=== PATIENT | male | born 1930 | race Caucasian/White ===

== ENCOUNTER 2018-02-26 10:01 | Outpatient (CLI) | payer MEDICARE, OTHER ==
[2012-09-09 19:44] VITALS: BP 139/48
== END 2018-02-26 10:02 ==
LOC: LABRHC 10:01
PROVIDERS: ATTEND Family Medicine
DX: D23.9 Other benign neoplasm of skin, unspecified (principal)

== ENCOUNTER 2018-08-21 09:27 | Outpatient (CLI) | payer MEDICARE, OTHER ==
[2012-09-09 19:44] VITALS: BP 139/48
[2018-08-21 10:36] LABS: eGFR (Non-African) > 60
--- NOTE | 2018-08-22 10:30 | Diagnostic Imaging Report ---
JAYDEN GARCIA ([employer] [place]) [facility] [id number] [facility] [address] [place], [place]. [address] Report Submission Date: Aug 22, 2018 7:00:18 AM CAN CLOSING MACHINE OPERATOR Patient Study Name: ALEXUS SY Date: Aug 21, 2018 11:49:07 AM CAN CLOSING MACHINE OPERATOR Modality Type: CT\SR Gender: M Description: CT LOWER EXT WITH CONT : 08/08/30 Institution: [facility] Physician: JAYDEN GARCIA ([place]) HISTORY: 88-year-old male with left foot ulceration, diabetes COMPARISON: None available TECHNIQUE: High resolution helical CT images of the abdomen, pelvis, and bilateral lower extremities were performed with 80 ml Omnipaque 350 IV contrast using CTA protocol. Sagittal and coronal reformatted images and 3-D MIP reconstructions were obtained. FINDINGS/IMPRESSION: Lower abdomen: No aneurysmal dilatation or significant stenosis of the distal aspect of the abdominal aorta. The YANCY is patent. The SMA and renal arteries are not included here. Pelvis: There are extensive atherosclerotic calcifications throughout the iliac arteries. There is a 70% right and 50% left common iliac artery stenosis. The distal aspect of the right common iliac artery is ectatic up to 14 mm in diameter. No significant stenosis in the bilateral external iliac arteries. There is diffuse narrowing of the bilateral internal iliac arteries. Right lower extremity: The common femoral artery is mildly narrowed. There is diffuse mild narrowing of the proximal aspect of the superficial femoral artery, with moderate narrowing in the midportion and complete occlusion in the distal thigh, 28 cm distal to the origin. There is reconstitution of the popliteal artery, which is diffusely narrowed. There is diffuse narrowing of the anterior and posterior tibial arteries and peroneal artery. The anterior tibial artery and peroneal artery are occluded by the mid calf. There is a small amount of contrasted blood flow identified in the posterior tibial artery at the level of the ankle. There is compromised single vessel runoff to the right ankle. Left lower extremity: There is estimated 90% stenosis of the common femoral artery. There is estimated 80% stenosis of the origin of the superficial femoral artery. There is diffuse moderate to severe narrowing of the mid to distal superficial femoral artery. There is diffuse moderate narrowing of the popliteal artery. There is diffuse narrowing of the anterior and posterior tibial arteries and peroneal artery. The anterior tibial artery and posterior tibial artery are occluded by the midcalf. There is a small amount of contrasted flow identified in the peroneal artery at the level of the ankle. There is compromised single vessel runoff to the left ankle. Miscellaneous: There are postoperative changes of open prostatectomy. There is fecal retention in the partially visualized colon. 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 Electronically signed on Aug 22, 2018 7:00:18 AM CAN CLOSING MACHINE OPERATOR by: Jerry SULLIVAN
== END 2018-08-21 09:55 ==
LOC: RAD 09:27
PROVIDERS: ATTEND Nurse Practitioner Family
DX: E11.9 Type 2 diabetes mellitus without complications (principal); I10 Essential (primary) hypertension; I73.9 Peripheral vascular disease, unspecified; I70.201 Unspecified atherosclerosis of native arteries of extremities, right leg; I74.5 Embolism and thrombosis of iliac artery; I74.3 Embolism and thrombosis of arteries of the lower extremities
CPT/HCPCS: 36415; 75635; 80053; Q9967; 73701

== ENCOUNTER 2019-05-06 08:45 | Outpatient (CLI) | payer MEDICARE, OTHER ==
[2012-09-09 19:44] VITALS: BP 139/48
== END 2019-05-06 09:00 ==
LOC: LAB 08:45
PROVIDERS: ATTEND Family Medicine
DX: I25.10 Atherosclerotic heart disease of native coronary artery without angina pectoris (principal); E11.9 Type 2 diabetes mellitus without complications; I10 Essential (primary) hypertension
CPT/HCPCS: 36415; 83036; P9603

== ENCOUNTER 2019-05-24 09:58 | Outpatient (CLI) | payer MEDICARE, OTHER ==
[2012-09-09 19:44] VITALS: BP 139/48
== END 2019-05-24 10:03 ==
LOC: LAB 09:58
PROVIDERS: ATTEND Family Medicine
DX: E11.9 Type 2 diabetes mellitus without complications (principal)
CPT/HCPCS: 36415; 83036; P9603